=== PATIENT | female | born 1945 | race Two or more races ===

== ENCOUNTER → 2017-01-28 | Outpatient (CLI) | payer MEDICARE ==
--- NOTE | 2017-01-29 11:51 | XCELERA REPORT ---
[address] [address] Lower Extremity Arterial Evaluation Name: RUBIA NIELSEN Age: 71 yrs Gender: Female : 1945 Patient Status: Outpatient Patient Location: Study Date: 01/28/2017 01:31 PM Procedure: A color flow and duplex scan of the lower extremity arteries was performed bilaterally with velocity and waveform anaylsis. Ankle brachial indicies performed. Reason For Study: PAIN Ordering Physician: JANENE HEATH Performed By: Jessika Santillan Measurements and Calculations Right Left [employer] [place] PSV 162.6 157.1 cm/sec Prox PFA PSV -146.9 -141.8 cm/sec Prox SFA PSV 160.3 258.2 cm/sec Mid SFA PSV -86.4 -98.7 cm/sec Dist SFA PSV -93.3 -93.3 cm/sec Prox Pop A PSV 61.6 120.1 cm/sec Dist [place] PSV 82.5 100.4 cm/sec Dist [employer] PSV 90.4 105.9 cm/sec Rah Pedis PSV 81.6 109.2 cm/sec Right Side Arterial Evaluation Normal velocity and triphasic waveforms noted from the Common Femoral artery to the infrageniculate vessels. Calcification noted in Femoral artery. 0 % stenosis noted. Ankle Brachial index is 0.89. Left Side Arterial Evaluation Abnormal, increased velocity noted in proximal Femoral artery. Otherwise normal velocity and triphasic waveforms noted from the Common Femoral artery to the infrageniculate vessels. Calcification noted in Femoral artery. Possible, unquantifiable stenosis noted in the proximal Femoral artery. Ankle Brachial index was not obtainable due to non compressibility. Interpretation Summary No hemodynamically significant lesions in the right lower extremity only, on duplex imaging, at rest. Mild hemodynamically significant lesions in the left lower extremity only, on duplex imaging, at rest. There are findings, indicative of atherosclerosis, bilaterally and possible subclinical stenosis on the left. : JEFFERSON DURON, RN SHIFT MGR-C > David Cervantes
== END ==
LOC: SP 12:42
PROVIDERS: ATTEND Nurse Practitioner
DX: M79.604 Pain in right leg (principal); M79.605 Pain in left leg
CPT/HCPCS: 93925; 93970